=== PATIENT | female | born 1985 | race Caucasian/White ===

== ENCOUNTER 2017-02-13 16:20 | Emergency (ER) | payer BC ==
[~2017-02-13] VITALS: Ht 167.6 cm; Wt 85.0 kg
[2017-02-13] MEDS ORDERED: SODIUM CHLORIDE FLUSH 10ML SYR IVF ONE (17:00)
[2017-02-13 17:28] LABS: ASPARTATE AMINO TRANSFERASE 9 U/L (15-37); BLOOD UREA NITROGEN 10 mg/dL (7-18)
[2017-02-13] MEDS ORDERED: KETOROLAC 30 MG/1 ML ONE (18:18)
[2017-02-13] MEDS ORDERED: KETOROLAC 30 MG/1 ML IM ONE (18:30)
[2017-02-13 19:35] VITALS: BP 119/86
== END 2017-02-13 19:37 | disposition home or self-care (01) ==
LOC: ED 19:31
DX: R10.12 Left upper quadrant pain (principal); N12 Tubulo-interstitial nephritis, not specified as acute or chronic
CPT/HCPCS: 36415; 76770; 76830; 80053; 81001; 83690; 84703; 85025; 87077; 87086; 96372; 99285; J1885; 87186

== ENCOUNTER 2018-12-12 15:42 | Emergency (ER) | payer BC ==
[~2018-12-12] VITALS: Ht 167.6 cm; Wt 97.0 kg
--- NOTE | 2018-12-12 17:10 | NUR ---
CHANNELER INSOLE: PT TO ROOM FROM [facility]
--- NOTE | 2018-12-12 17:45 | NUR ---
PT PRESENTS TO ED STATING AT 1430 THIS PM, HER RIGHT ARM BECAME NUMB. SHE THEN BECAME DIZZY, DEVELOPED STERNAL CHEST PAIN, AND NUMBNESS PROGRESSED TO WHOLE UPPER BODY AND LEFT ARM. EKG TAKEN IN TRIAGE. PT ON ALL MONITORS. PT REPORTS CP IS 5/10 AT THIS TIME, NEURO IS INTACT. NO DRIFT, EQUAL GRASP BILATERALLY, 5/5 STRENGTH TO ALL EXTREMITIES. FACE SYMMETRICAL. PUPILS ARE EQUAL, ROUND AND REACTIVE. PT SPEAKING IN FULL SENTENCES WITHOUT DIFFICULTY. PT IS NORMAL SINUS RHYTHM ON THEATRICAL PERFORMER WITH NO ECTOPY NOTED. AWAITING MD AND ORDERS AT THIS TIME.
[2018-12-12] MEDS ORDERED: LORazepam 1MG TABLET PO ONE (18:00)
[2018-12-12 18:26] LABS: BASOPHILS # (AUTO) 0.03 x10^3/uL (0-0.1); BASOPHILS % (AUTO) 0 % (0-1); EOSINOPHILS % (AUTO) 1 % (1-7); LYMPHOCYTES # (AUTO) 2.63 x10^3/uL (1-3.4); LYMPHOCYTES % (AUTO) 35 % (22-44); MD NO; MEAN CORPUSCULAR HEMOGLOBIN 31.4 pg (27.0-34.8); MEAN CORPUSCULAR HGB CONC 34.8 g/dL (32.4-35.8); MEAN CORPUSCULAR VOLUME 90.5 fL (80-100); MEAN PLATELET VOLUME 8.5 fL (7.4-10.4); MONOCYTES # (AUTO) 0.58 x10^3/uL (0.2-0.8); MONOCYTES % (AUTO) 8 % (2-9); NEUTROPHILS # (AUTO) 4.27 x10^3/uL (1.8-6.8); NEUTROPHILS % (AUTO) 56 % (42-75); PLATELET COUNT 273 x10^3/uL (130-400); RED BLOOD COUNT 4.41 x10^6/uL (3.82-5.3); RED CELL DISTRIBUTION WIDTH 11.9 % (9.6-15.2)
--- NOTE | 2018-12-12 18:34 | NUR ---
report given to lunch SAMINA Kelsey.
[2018-12-12 18:35] LABS: ANION GAP 5 mmol/L (5-15); CALCIUM 9.2 mg/dL (8.5-10.1); CHLORIDE 106 mmol/L (98-107)
[2018-12-12] MEDS ORDERED: LORazepam 1MG TABLET ONE (18:39)
[2018-12-12 18:41] LABS: CREATININE 0.71 mg/dL (0.55-1.02); T4 (THYROXINE) 9.8 mcg/dL (4.8-13.9); TROPONIN I < 0.015 ng/mL (0.000-0.045)
--- NOTE | 2018-12-12 18:46 | NUR ---
FLOAT RN COVERING MEAL BREAK. MED GIVEN PER ERP ORDER. PT AND FAMILY UPDATED ON POC. VSS/UPDATED IN COMPUTER. CALL LIGHT WITHIN REACH.
[2018-12-12 20:44] VITALS: BP 118/80
--- NOTE | 2018-12-12 20:45 | NUR ---
pt reports symptoms have improved after med given. pt a&o, resps even and unlabored, nsr on compliance monitor. pt given dc instructions and script. pt educated regarding atarax rx. pt amb to dc desk with steady gait, accompanied by father. otilian at dc.
== END 2018-12-12 20:46 | disposition home or self-care (01) ==
LOC: ED 20:40
DX: R07.89 Other chest pain (principal); F41.1 Generalized anxiety disorder
CPT/HCPCS: 36415; 71046; 80048; 82040; 84436; 84443; 84484; 85025; 93005; 99284